=== PATIENT | male | born 1995 | race Caucasian/White ===

== ENCOUNTER 2021-04-19 00:15 | Day surgery (SDC) | payer OTHER, SELFPAY ==
[2021-04-07 13:16] VITALS: BMI 22.3
--- NOTE | 2021-04-18 21:53 | P.CONGI_ITS ---
Assessment and Plan Assessment and plan (1) Blood in stool: Code(s): K92.1 - Melena Status: Acute Assessment and Plan: Colonoscopy with possible biopsy or polypectomy or cautery or injection of substances. (2) Change in bowel habits: Code(s): R19.4 - Change in bowel habit Status: Acute GI Consult Note Consult date/time: 04/18/21 21:53 HPI: Thomas Dumas is a 25 year old male with abdomenal pain, constipation, and blood in his stools. he began seen blood in his stools about 1 year ago. He denies constipation or straining. As matter of fact when he sees blood in his stools, more often than not he is having loose bowel movements at that time. He had blood work last year that was normal. He was told that he may have had a fissure. Serology for inflammatory bowel disease revealed a slight elevation of the p- ANCA, >1:20 Review of Systems Review of Systems: All systems reviewed & are unremarkable except as noted in HPI and below PMFSH Past Medical History Medical History Anxiety GERD (gastroesophageal reflux disease) Social History Social History Smoking status: Never smoker Alcohol intake: current Drinks per week: 4 Alcohol use details: socially Substance use: never Living arrangements: with family Gender identity (if verbalized by the patient): Male Spiritual care concerns: No Meds Home Medications and Allergies Home Medications Medication Instructions Recorded Confirmed Type omeprazole 20 mg capsule,delayed 20 mg PO DAILY #30 cap 03/28/21 04/19/21 Rx release Allergies Allergy/AdvReac Type Severity Reaction Status Date / Time No Known Allergies Allergy Verified 04/19/21 09:09 Exam Const: General: alert Orientation/consciousness: patient oriented x3 Resp: Auscultation: clear to auscultation bilaterally Cardio: Rhythm: regular rhythm GI: GI Palp: Yes Soft to palpation and No Tenderness to palpation present (GI) Neuro: General: patient oriented x3
[2021-04-19 09:05] VITALS: BP 134/75; PULSE 101; RESP 18; TEMP 36.4; O2SAT 99; BMI 21.6
--- NOTE | 2021-04-19 09:05 | P.PNAN_ITS ---
Anes - Initial Pre Proc Eval Procedure: Operation Date: 04/19/21 10:30 Proposed Procedures p Colonoscopy - Jens Watts MD Date/Time: 04/19/21 09:05 Surgeon: Jens Watts MD Pre Op Diagnosis: melena, diarrhea Patient Data Age: 25 Gender: M Height: 1.91 m Weight: 81 kg Allergies Allergy/AdvReac Type Severity Reaction Status Date / Time No Known Allergies Allergy Verified 04/07/21 13:15 Home Medications Medication Instructions Recorded Confirmed Type omeprazole 20 mg capsule,delayed 20 mg PO DAILY #30 cap 03/28/21 04/07/21 Rx release Patient hx anesthesia problems: none Family hx anesthesia problems: none Results Review: All pre-operative results and documents have been reviewed as part of the pre-operative evaluation. [facility] Past Medical History Medical History (Updated 04/19/21 @ 09:06 by Drew Bran MD) Anxiety GERD (gastroesophageal reflux disease) Social History Social History Smoking status: Never smoker Alcohol intake: current Drinks per week: 4 Alcohol use details: socially Substance use: never Living arrangements: with family Gender identity (if verbalized by the patient): Male Spiritual care concerns: No Anes - Eval Final PreProcedure Day of Procedure 04/19/21 09:05 Patient weight: normal Heart: regular rate and rhythm Lungs: clear to auscultation and normal air movement Airway: Mallampati scale class II Neurological: alert and oriented Last oral intake: >/= 8 hours ASA classification: II Emergent: no Anesthetic plan: proceed Anesthesia type and monitoring: general GIVS Results Review: All pre-operative results and documents have been reviewed as part of the pre-operative evaluation. Informed Consent: The patient's anesthetic plan and its attendant risks and benefits were discussed with the patient/family/POA. Questions were solicited and answers provided to the satisfaction of the patient/family/POA.
[2021-04-19] MEDS: LACTATED RINGERS 1,000 ML 150 ML IV CONT (09:28)
[2021-04-19 10:42] VITALS: BP 111/55; PULSE 73; RESP 22; O2SAT 98
[2021-04-19 10:52] VITALS: BP 114/53; PULSE 67; RESP 17; O2SAT 100
[2021-04-19 11:02] VITALS: BP 117/62; PULSE 76; RESP 25; O2SAT 100
== END 2021-04-19 11:10 | disposition home or self-care (01) ==
PROVIDERS: PCP Nurse Practitioner Family; Visit Provider Internal Medicine Gastroenterology
PROC: 0DJD8ZZ Inspection of Lower Intestinal Tract, Via Natural or Artificial Opening Endoscopic (ICD-10-PCS; CPT 45378; principal; 2021-04-19 10:30)
DX: K92.1 Melena (principal); R19.4 Change in bowel habit; K21.9 Gastro-esophageal reflux disease without esophagitis; F41.9 Anxiety disorder, unspecified
CPT/HCPCS: 45380; 88305; J2704; J7120

== ENCOUNTER 2022-02-13 11:04 | Emergency (ER) | payer OTHER, SELFPAY ==
--- NOTE | 2022-02-13 11:05 | ED.URI ---
HPI - URI/Sore Throat General Chief Complaint: Upper Respiratory Infection Stated Complaint: sore throat Time Seen by Provider: 02/13/22 11:04 Source: patient Mode of arrival: ambulatory Limitations: no limitations History of Present Illness HPI Narrative: Thomas is a 26-year-old male patient presenting to clinic today with complaints of sore throat x1 day. He reports no fever or chills. Has been taking care of his sister who tested positive for strep. States he feels as though his throat is swollen and having throat heaviness MD elicited complaint: sore throat Related Data Home Medications Medication Instructions Recorded Confirmed No Home Medications 02/13/22 02/13/22 Allergies Allergy/AdvReac Type Severity Reaction Status Date / Time No Known Allergies Allergy Verified 02/13/22 11:13 Review of Systems Review of Systems: Pertinent positives per HPI. Patient denies any fever, chills, rash, headache, visual changes, dizziness, cough, shortness of breath, chest pain, palpitations, nausea, vomiting, diarrhea, constipation, abdominal pain, or any urinary issues. PMFSH Past Medical History Medical History Anxiety GERD (gastroesophageal reflux disease) Social History Social History Smoking status: Never smoker Alcohol intake: current Drinks per week: 4 Alcohol use details: socially Substance use: never Gender identity (if verbalized by the patient): Male Spiritual care concerns: No Comments At the time of my signature, I reviewed and agree with the nursing past medical, surgical, social, and family history. There is no relevant family history pertinent to the patient complaint. Exam Narrative: General: Well-developed, well nourished, in no apparent distress Head: Normocephalic, atraumatic Eyes: Pupils equally round and reactive to light bilaterally, EOM intact, sclera and conjunctive clear, no discharge, lids normal Ears: TMs intact and clear, ear canals clear, no drainage, grossly hearing normal. Nose: Nares patent, clear nasal discharge, no inflammation, no sinus tenderness. Mouth: Oral pharynx without lesions or masses, good dentition, MMM. oropharynx red Neck: Supple, trachea midline, no enlargement of anterior or posterior cervical nodes, no thyroid masses or goiter palpable. Cardio: Regular rate and rhythm, s1 and s2 normal, no murmur appreciated. Resp: Clear to auscultation bilaterally, no rhonchi, rales, wheezing or rubs Course Course Emergency Course: Portions of this record may have been created with voice recognition software. Level of Care: Express Care Visit Vital Signs Vital signs: Vital Signs Temperature 36.2 C L 02/13/22 11:11 Pulse Rate 79 02/13/22 11:11 Respiratory Rate 16 02/13/22 11:11 Blood Pressure 142/62 H 02/13/22 11:11 Pulse Oximetry 100 02/13/22 11:11 Oxygen Delivery Room Air 02/13/22 11:11 Temperature 36.2 C L 02/13/22 11:11 Pulse Rate 79 02/13/22 11:11 Respiratory Rate 16 02/13/22 11:11 Blood Pressure 142/62 H 02/13/22 11:11 Pulse Oximetry 100 02/13/22 11:11 Oxygen Delivery Room Air 02/13/22 11:11 Vital signs reviewed MDM - URI/Sore Throat MDM Narrative Medical decision making narrative: At the time of visit patient is resting comfortably on the exam table. Strep screen was obtained and was negative in the clinic today.strep culture was sent to the lab in supportive measures were discussed with the patient he voiced understanding of discharge instructions and agrees to treatment plan. Differential Diagnosis Differential diagnosis: Likely upper respiratory infection, otitis media, sinusitis, viral infection, bronchitis, influenza, pharyngitis and other ( COVID) Lab Data Labs: Strep Screen Presumptive Negative *(Reference Range: N
[2022-02-13 11:11] VITALS: BP 142/62; PULSE 79; RESP 16; TEMP 36.2; O2SAT 100
== END 2022-02-13 11:28 | disposition home or self-care (01) ==
PROVIDERS: Emergency Provider Nurse Practitioner Family; PCP Family Medicine
DX: J02.9 Acute pharyngitis, unspecified (principal); K21.9 Gastro-esophageal reflux disease without esophagitis
CPT/HCPCS: 87081; 87880; 99213; G0463